=== PATIENT | male | born 1965 | race Caucasian/White ===

== ENCOUNTER 2024-08-16 06:25 | Day surgery (SDC) | payer OTHER, SELFPAY ==
[2024-08-09 09:07] LABS: Hematocrit 45.6 % (39.0-52.0); Hemoglobin 16.3 g/dL (13.0-18.0); Mean Corp Hgb Conc. 35.7 g/dL (33.0-37.0); Mean Corpuscular Hgb 35.7 pg (27.0-31.0); Mean Platelet Volume 9.6 fL (7.4-10.4); Platelet Count 297 10^3/uL (130-400); Red Blood Cell Count 4.56 10^6/uL (4.70-6.10); Red Cell Dist. Width 12.5 % (11.5-14.5); White Blood Cell Count 7.9 10^3/uL (4.8-10.8)
[2024-08-09 10:13] LABS: Blood Urea Nitrogen 17 mg/dl (9-20); Calcium 9.7 mg/dl (8.4-10.2); Carbon Dioxide 23 mmol/L (22-30); Chloride 104 mmol/L (98-107); Glucose 106 mg/dl (70-99); Potassium 4.6 mmol/L (3.5-5.1); Sodium 140 mmol/L (135-145); eGFR > 60.00
[2024-08-09 12:42] VITALS: BMI 26.8
[2024-08-16] VITALS (8 sets, daily range): BP systolic 117–143; BP diastolic 80–98; BMI 26.8
[2024-08-16] MEDS: NORMOSOL-R/PLASMALYTE-A 1000 IV (09:04)
[2024-08-16] MEDS: TYLENOL 1000 MG PO (09:04)
== END 2024-08-16 13:35 | disposition home or self-care (01) ==
LOC: SDS 06:25
PROVIDERS: ATTENDING PHYSICIAN Surgery; FAMILY PHYSICIAN Physician Assistant
PROC: 0YU64JZ Supplement Left Inguinal Region with Synthetic Substitute, Percutaneous Endoscopic Approach (ICD-10-PCS; 2024-08-16)
PROC: 8E0W4CZ Robotic Assisted Procedure of Trunk Region, Percutaneous Endoscopic Approach (ICD-10-PCS; 2024-08-16)
DX: K40.90 Unilateral inguinal hernia, without obstruction or gangrene, not specified as recurrent (principal); I10 Essential (primary) hypertension
CPT/HCPCS: 49650; 36415; 80048; 85027; 93005; C1781

== ENCOUNTER 2024-10-17 16:30 | Observation (INO) | payer OTHER, SELFPAY ==
[2024-10-17 12:44] VITALS: BP 167/100
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
[2024-10-17 15:08] VITALS: BP 131/93
[2024-10-17] MEDS: TYLENOL 650 MG PO ×2 (15:41→19:57)
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
[2024-10-17 17:42] VITALS: BP 135/102
[2024-10-17 18:53] VITALS: BMI 25.2
[2024-10-17 19:45] VITALS: BP 133/84; BMI 24.7
[2024-10-17] MEDS: MELATONIN 5 MG PO (20:54)
[2024-10-17] MEDS: ULTRAM 50 MG PO (23:20)
[2024-10-17 23:24] VITALS: BP 116/70
[2024-10-18 03:19] VITALS: BP 121/65
[2024-10-18] MEDS: TYLENOL 650 MG PO ×4 (04:31→21:54)
[2024-10-18 07:15] VITALS: BP 127/72
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
[2024-10-18] MEDS: ZESTRIL 10 MG PO (08:58)
[2024-10-18 09:21] LABS: % Basophils 0.1 % (0-2); % Eosinophils 0.1 % (0-6); % Immature Granulocytes 0.5 % (0-0.5); % Lymphocytes 9.3 % (20.5-51.1); % Monocytes 10.4 % (1.7-9.3); % Neutrophils 79.6 % (42.2-75.2); Absolute Immature Granulocytes 0.1 10^3/uL (0-0.05); Absolute Lymphocytes 1.3 10^3/uL (1.2-3.4); Absolute Monocytes 1.5 10^3/uL (0.1-0.6); Absolute Neutrophils 11.2 10^3/uL (1.4-6.5); Hematocrit 41.7 % (39.0-52.0); Hemoglobin 14.4 g/dL (13.0-18.0); Mean Corp Hgb Conc. 34.5 g/dL (33.0-37.0); Mean Corpuscular Volume 101.2 fL (80.0-94.0); Mean Platelet Volume 9.6 fL (7.4-10.4); Nucleated Red Blood Cells % 0 % (-); Platelet Count 285 10^3/uL (130-400); Red Blood Cell Count 4.12 10^6/uL (4.70-6.10); White Blood Cell Count 14.1 10^3/uL (4.8-10.8)
[2024-10-18 10:49] LABS: ALT (SGPT) 20 U/L (0-50); AST (SGOT) 27 U/L (17-59); Albumin 3.9 g/dl (3.5-5.0); Alkaline Phosphatase 105 U/L (38-126); Blood Urea Nitrogen 16 mg/dl (9-20); Calcium 9.5 mg/dl (8.4-10.2); Carbon Dioxide 25 mmol/L (22-30); Chloride 102 mmol/L (98-107); Estimated Creatinine Clearance 117 ml/min; Glucose 111 mg/dl (70-99); Potassium 4.9 mmol/L (3.5-5.1); Sodium 135 mmol/L (135-145); Total Bilirubin 1.2 mg/dl (0.2-1.3); Total Protein 6.4 g/dl (6.3-8.2); eGFR > 60.00
[2024-10-18 11:10] VITALS: BP 135/72
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
[2024-10-18 15:25] VITALS: BP 138/86
--- NOTE | 2024-10-18 15:48 | CM ---
Alert awake oriented patient who lives with his Jacqui who lives in a 2 story home with 2 step to enter and 10 steps to bed and bathroom. He is independent in driving and in all activities of daily living.He was offered VN he declined
need.Explained observation letter to pt and copy given . Pt did not sign letter.
No VN hx / No SNF history
Pharmacy [facility]
PCP DR Hunter
PLAN Home Declined VN
--- NOTE | 2024-10-18 16:33 | PTCARENOTE ---
Pt napping for long intervals; easily arousable; alert, oriented x3 when awake. RAMIREZ well, ambulator yin room/to BR; no c/o weakness/dizziness. Pt c/o persistent frontal/Rt parietal headache; states 'Tylenol does not help much'. pt stated he does
not feel well enough to go home today. Dr. Gregoyr notified. VSS. On room air -pulse ox 99%, no SOB oted. Abd soft, rounded, aaron PO, appetite fair. Voids in BR without difficulty. resting n bed at present. Will continue to monitor.
[2024-10-18] MEDS: ULTRAM 50 MG PO (16:38)
--- NOTE | 2024-10-18 17:14 | PTCARENOTE ---
Pt vomited after Tramadol dose given states he 'feels better now'. Currently eating dinner. Will continue to monitor.
[2024-10-18 19:40] VITALS: BP 136/84
[2024-10-18 23:48] VITALS: BP 141/89
[2024-10-19] MEDS: TUMS CHEWABLE TABLET 200 MG PO (00:46)
[2024-10-19 03:55] VITALS: BP 141/90
[2024-10-19 06:56] LABS: % Basophils 0.2 % (0-2); % Eosinophils 0.3 % (0-6); % Immature Granulocytes 0.5 % (0-0.5); % Monocytes 10.5 % (1.7-9.3); % Neutrophils 76.5 % (42.2-75.2); Absolute Immature Granulocytes 0.1 10^3/uL (0-0.05); Absolute Lymphocytes 1.3 10^3/uL (1.2-3.4); Absolute Monocytes 1.2 10^3/uL (0.1-0.6); Absolute Neutrophils 8.5 10^3/uL (1.4-6.5); Hematocrit 40.4 % (39.0-52.0); Hemoglobin 14.1 g/dL (13.0-18.0); Mean Corp Hgb Conc. 34.9 g/dL (33.0-37.0); Mean Corpuscular Hgb 34.4 pg (27.0-31.0); Mean Corpuscular Volume 98.5 fL (80.0-94.0); Mean Platelet Volume 9.6 fL (7.4-10.4); Nucleated Red Blood Cells % 0 % (-); Platelet Count 291 10^3/uL (130-400); Red Cell Dist. Width 11.9 % (11.5-14.5); White Blood Cell Count 11.1 10^3/uL (4.8-10.8)
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
[2024-10-19 07:30] VITALS: BP 141/83
[2024-10-19 07:30] LABS: Blood Urea Nitrogen 13 mg/dl (9-20); Calcium 9.5 mg/dl (8.4-10.2); Carbon Dioxide 26 mmol/L (22-30); Chloride 99 mmol/L (98-107); Estimated Creatinine Clearance > 125 ml/min; Glucose 111 mg/dl (70-99); Potassium 4.2 mmol/L (3.5-5.1); Sodium 134 mmol/L (135-145); eGFR > 60.00
[2024-10-19] MEDS: ZESTRIL 10 MG PO (08:16)
[2024-10-19] MEDS: TYLENOL 650 MG PO (08:16)
[2024-10-19 11:11] VITALS: BP 113/69
== END 2024-10-19 13:48 | disposition home or self-care (01) ==
LOC: 4 EAST ACU 16:30
PROVIDERS: Student in an Organized Health Care Education/Training Program; ADMITTING PHYSICIAN Hospitalist; ATTENDING PHYSICIAN Family Medicine; EMERGENCY PHYSICIAN Student in an Organized Health Care Education/Training Program; FAMILY PHYSICIAN Physician Assistant; OTHER PHYSICIAN Neurological Surgery
DX: S06.5XAA Traumatic subdural hemorrhage with loss of consciousness status unknown, initial encounter (principal); R51.9 Headache, unspecified; Y04.2XXA Assault by strike against or bumped into by another person, initial encounter; Y93.01 Activity, walking, marching and hiking; Y92.414 Local residential or business street as the place of occurrence of the external cause; I10 Essential (primary) hypertension; F17.210 Nicotine dependence, cigarettes, uncomplicated; H11.32 Conjunctival hemorrhage, left eye; M50.322 Other cervical disc degeneration at C5-C6 level; M48.02 Spinal stenosis, cervical region; R11.10 Vomiting, unspecified; J32.0 Chronic maxillary sinusitis; G93.6 Cerebral edema; D72.829 Elevated white blood cell count, unspecified; R22.2 Localized swelling, mass and lump, trunk; R07.81 Pleurodynia; R07.89 Other chest pain; E87.1 Hypo-osmolality and hyponatremia; E86.1 Hypovolemia; F10.10 Alcohol abuse, uncomplicated; Z79.899 Other long term (current) drug therapy
CPT/HCPCS: 70450; 70486; 71046; 72125; 80048; 80053; 85025; 99285; 99406; G0378